=== PATIENT | female | born 1945 ===

== ENCOUNTER 2021-02-23 02:44 | Outpatient (RCR) | payer MEDICARE, BC, SELFPAY ==
[2021-02-23] MEDS: diphenhydrAMINE 25 MG CAP 50 MG PO (10:04)
[2021-02-23] MEDS: Normal Saline Flush 10 ML SYR IVP (10:04)
[2021-02-23] MEDS: Acetaminophen 325 MG TAB 650 MG PO (10:04)
[2021-02-23] MEDS: methylPREDNISolone SUCC 40 MG VIAL IVP (10:08)
[2021-02-23 10:15] VITALS: BP 175/80; PULSE 66; RESP 16; TEMP 36.7; O2SAT 96
[2021-02-23 10:45] VITALS: BP 173/107; PULSE 72; RESP 16; TEMP 36.5; O2SAT 96
[2021-02-23 11:15] VITALS: BP 160/80; PULSE 68; RESP 16; TEMP 36.6; O2SAT 95
[2021-02-23 11:45] VITALS: BP 193/82; PULSE 77; RESP 16; TEMP 36.8; O2SAT 95
[2021-02-23 12:15] VITALS: BP 195/84; PULSE 82; RESP 16; TEMP 36.6; O2SAT 96
[2021-02-23 12:45] VITALS: BP 167/76; PULSE 82; RESP 16; TEMP 36.6; O2SAT 93
== END 2021-03-12 23:59 | disposition home or self-care (01) ==
LOC: INF 02:44
PROVIDERS: Visit Provider Internal Medicine
DX: G61.81 Chronic inflammatory demyelinating polyneuritis (principal)
CPT/HCPCS: 96365; 96366; 96374; 96375; J9312